=== PATIENT | male | born 1965 | race Caucasian/White ===

== ENCOUNTER 2023-12-01 01:20 | Emergency (ER) | payer MEDICAID ==
[2023-12-01 01:23] VITALS: PULSE 85
== END 2023-12-01 02:40 | disposition left against medical advice (07) ==
LOC: ER 02:08
DX: R10.9 Unspecified abdominal pain (principal); Z53.21 Procedure and treatment not carried out due to patient leaving prior to being seen by health care provider
CPT/HCPCS: 99281